=== PATIENT | male | born 2000 | race Caucasian/White ===

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

== ENCOUNTER 2022-08-11 08:37 | Outpatient (CLI) | payer OTHER, MEDICAID, SELFPAY ==
--- NOTE | 2022-08-11 08:45 | MR_ITS ---
WS: [id number] MRI LEFT KNEE HISTORY: LEFT knee pain. Prior ACL repair. Prior patellar tendon repair. COMPARISON: 06/01/2021 Anterior cruciate ligament: Prior ACL repair. A normal-appearing reconstructed ACL is not identified. There is increased signal but no normal-appearing fibers through the region of the ACL. Suspicious f or re-tear. Posterior cruciate ligament: Mild posterior buckling. Medial collateral ligament: Intact. Posterior lateral corner structures: Partial tear of the lateral collateral ligament, inferior to the joint space. Medial menisci: Intact. Normal signal, size and shape. Lateral meniscus: Fissuring and increased signal in the posterior horn towards the meniscal root. Extensor mechanism: Distal quadriceps tendon and patellar tendons are intact. Fluid and soft tissue: Small joint effusion. No Victor's cyst. Osseous and articular structures: Patellofemoral compartment: Mild narrowing of patellofemoral compartment. No marrow edema. Medial compartment: Negative. No marrow edema. Lateral compartment: Mild narrowing of the lateral compartment. Moderate amount of edema in the femor al condyle and tibial plateau. Marrow edema extends to the lateral tibial plateau adjacent to the lat eral collateral ligament injury. MR/MR knee LT wo con* [id number] IMPRESSION: 1. Suspect new tear of the ACL reconstruction. Normal ACL fibers are not ident ified. 2. Partial tear distal lateral collateral ligament. 3. Moderate amount of marrow edema in the lateral femoral condyle and tibial p lateau. 4. Intrasubstance degeneration with fissuring in the posterior lateral meniscu s towards the meniscal root. No definite full-thickness tear. 5. No patellar tendon tear.
== END 2022-08-11 08:38 | disposition home or self-care (01) ==
LOC: RAD 08:38
PROVIDERS: PCP Family Medicine; Visit Provider Orthopaedic Surgery
DX: S83.422A Sprain of lateral collateral ligament of left knee, initial encounter (principal); R60.0 Localized edema; X58.XXXA Exposure to other specified factors, initial encounter
CPT/HCPCS: 73721

== ENCOUNTER → 2023-04-21 07:40 | Outpatient (BNVA) | payer OTHER, MEDICAID, SELFPAY | PROVIDERS: PCP Family Medicine; Visit Provider Student in an Organized Health Care Education/Training Program | DX: S83.512A Sprain of anterior cruciate ligament of left knee, initial encounter (principal); S83.8X2A Sprain of other specified parts of left knee, initial encounter; M25.462 Effusion, left knee; X58.XXXA Exposure to other specified factors, initial encounter | CPT/HCPCS: 73560; 73565 ==

== ENCOUNTER 2023-05-09 14:12 | Outpatient (CLI) | payer OTHER, MEDICAID, SELFPAY ==
--- NOTE | 2023-05-09 14:30 | MR_ITS ---
WS: [id number] MRI LEFT KNEE NONCONTRAST TECHNIQUE: Axial PD, coronal PD fat sat, coronal PD, sagittal PD, and sagittal PD fat-sat images obta ined. CLINICAL INFORMATION: pain COMPARISON: MRI August 11, 2022 FINDINGS: Distal quadriceps and patella tendons are intact. Hypertrophic patella. History of prior ACL surgery with tibial anchor. No normal ACL fibers visualized similar to the prior examination suspicious for r ecurrent tear. Normal PCL. A few tiny residual ACL fibers visualized along the distal tunnel. Small suprapatellar effusion. Lobulated ganglion cyst along the PCL is similar to previous. Advanced chondro malacia patella. Medial and lateral patellar retinacula appear intact. Slight lateral subluxa tion of the patella some of which may be due to positioning. Diffuse edema involving the medial and l ateral tibial plateau extending posteriorly. Adjacent edema in the anteromedial anterolateral femoral condyles. Chronic thinning of the medial and lateral meniscus. No acute appearing meniscal tears. Previously de scribed partial LCL tear appears unchanged. Medial collateral ligament appears intact. MR/MR knee LT wo con* [id number] IMPRESSION: 1. Prior ACL reconstruction. Suspected recurrent high-grade tear of the ACL. A few normal fibers visualized distally. 2. Normal PCL. 3. Chronic thinning of the medial and lateral meniscus. No acute appearing men iscal tears. 4. Diffuse contusion involving the medial and lateral tibial plateau and anter omedial and anterolateral femoral condyles. 5. Moderate chondromalacia involving the medial and lateral joint compartments . 6. Advanced chondromalacia patella. 7. Small joint effusion. 8. Suspected partial tear involving the lateral collateral ligament is unchang ed. MCL appears intact. Outbridge grading: grade III: partial-thickness cartilage loss with focal ulcer ation
== END 2023-05-09 14:13 | disposition home or self-care (01) ==
PROVIDERS: PCP Family Medicine; Visit Provider Student in an Organized Health Care Education/Training Program
DX: S83.512A Sprain of anterior cruciate ligament of left knee, initial encounter (principal); M25.462 Effusion, left knee; M22.42 Chondromalacia patellae, left knee; X58.XXXA Exposure to other specified factors, initial encounter
CPT/HCPCS: 73721